=== PATIENT | female | born 1990 | race Asian ===

== ENCOUNTER 2019-04-18 22:37 | Emergency (ER) | payer BC ==
[~2019-04-18] VITALS: Ht 162.6 cm; Wt 80.3 kg
[2019-04-18 23:38] LABS: BASOPHILS # (AUTO) 0.1 /CMM (0.0-0.2); BASOPHILS % (AUTO) 0.4 % (0.0-2.0); EOSINOPHILS % (AUTO) 0.4 % (0.0-6.0); HEMATOCRIT 46 % (33-45); HEMOGLOBIN 15.1 g/dL (11.5-14.8); LYMPHOCYTES # (AUTO) 4.3 /CMM (0.8-4.8); LYMPHOCYTES % (AUTO) 23.4 % (20.0-44.0); MEAN CORPUSCULAR HGB CONC 33 g/dl (31.0-36.0); MEAN CORPUSCULAR VOLUME 88 fL (82-100); MONOCYTES # (AUTO) 1.5 /CMM (0.1-1.30); NEUTROPHILS # (AUTO) 12.5 /CMM (1.8-8.9); NEUTROPHILS % (AUTO) 67.8 % (43.0-81.0); PLATELET COUNT (AUTO) 282 /CMM (150-450); RED BLOOD CELL COUNT(AUTO) 5.22 MIL/uL (4.0-5.2); WHITE BLOOD COUNT (AUTO) 18.4 K/uL (4.3-11.0)
[2019-04-18 23:44] LABS: CREATININE 0.8 mg/dL (0.6-1.3); POTASSIUM 3.6 mmol/L (3.5-5.1)
[2019-04-19] MEDS ORDERED: CLINDAMYCIN HCL 150 MG CAPSULE PO ONE ×2 (00:59→01:00)
--- NOTE | 2019-04-19 01:09 | NUR ---
PT OK TO BE DISCHARGED PER DR DELGADO. IV removed. Catheter intact and site benign. Pressure and 4x4 applied to site. No bleeding noted.Patient discharged to home in stable condition. Written and verbal after care instructions given. Patient verbalizes understanding of instruction.Patient is awake and alert to self, day, and place. PT ambulatory with a steady gait
[2019-04-19 01:56] VITALS: BP 132/71
[2019-04-19] MEDS ORDERED: IOHEXOL-300 100 ML VIAL IV ONE (03:40)
[2019-04-19] MEDS ORDERED: CT SWABBABLE VALVE TRANS SET 1 EA INFUS.SET MC ONE (03:40)
== END 2019-04-19 01:56 | disposition home or self-care (01) ==
LOC: ER 22:43
DX: L03.211 Cellulitis of face (principal)
CPT/HCPCS: 36415; 70487; 80048; 84703; 85025; 99284; Q9967